=== PATIENT | male | born 1995 | race Hispanic/Latino ===

== ENCOUNTER 2017-11-20 14:16 | Observation (INO) | payer OTHER ==
[2017-11-20 15:13] VITALS: BMI 19.3
[2017-11-20] MEDS ORDERED: Sodium Chloride 0.9% 1,000 ML IV STA (15:45)
[2017-11-20 16:38] LABS: BASO # 0.02 K/mm3 (0.0-2.0); BASO % 0.2 % (0.0-3.0); EOS % 0.1 % (1.5-5.0); GRAN # 7.77 (1.4-6.5); GRAN % 71.9 % (50.0-68.0); LYMPH # 2.1 (1.2-3.4); LYMPH % 19.3 % (22.0-35.0); MEAN CELL VOLUME 82.6 fl (80.0-105.0); MEAN CORPUSCULAR HEMOGLOBIN 29.9 pg (25.0-35.0); MEAN CORPUSCULAR HGB CONC 36.1 g/dl (31.0-37.0); MEAN PLATELET VOLUME 8.9 fl (7.0-11.0); MONO # 0.9 (0.1-0.6); MONO % 8.5 % (1.0-6.0); RBC 5.36 10^6/uL (3.5-6.1); RED CELL DISTRIBUTION WIDTH 12.6 % (11.5-14.5); URINE BILIRUBIN NEGATIVE (NEGATIVE); URINE BLOOD NEGATIVE (NEGATIVE); URINE GLUCOSE (UA) NEGATIVE (NEGATIVE); URINE LEUKOCYTE ESTERASE NEGATIVE Leu/uL (NEGATIVE); URINE PROTEIN NEGATIVE mg/dL (<30 mg/dL); URINE UROBILINOGEN 0.2 E.U./dL (<1 E.U./dL); WHITE BLOOD COUNT 10.8 10^3/ul (4.5-11.0)
[2017-11-20 16:40] LABS: URINE APPEARANCE CLEAR (CLEAR); URINE COLOR YELLOW (YELLOW)
[2017-11-20 16:42] LABS: ALB/GLOB RATIO 1.5 (1.1-1.8); ALBUMIN 4.4 g/dL (3.0-4.8); ALT/SGPT 32 U/L (7-56); AST/SGOT 32 U/L (17-59); BLOOD UREA NITROGEN 17 mg/dL (7-21); CALCIUM 9.8 mg/dL (8.4-10.5); GFR AFRICAN-AMERICAN > 60; GFR NON-AFRICAN AMERICAN > 60; LIPASE 115 U/L (23-300)
--- NOTE | 2017-11-20 16:52 | ED PDOC ---
Arrival/HPI - General Chief Complaint: Abdominal Pain Time Seen by Provider: 11/20/17 15:33 Historian: Patient - History of Present Illness Narrative History of Present Illness (Text): 11/20/17 16:54 22-year-old male presents today with a four-day history of worsening abdominal pain. Patient states pain started 4 days ago he describes the pain as intermittent and an achy patient states the pain is located in the right lower abdomen. Patient states the pain is at a constant 7 but then at least 4 times throughout the day he developed severe pain that he rates at 10 out of 10 which she states is sharp and radiates across the entire abdomen. Patient denies dysuria. He denies testicular pain. He denies radiation of pain to the back. He denies nausea or vomiting. He denies diarrhea or constipation states his last bowel movement was yesterday. Patient denies dizziness or weakness. No medications have been taken for pain at home. Although the patient does state that he did take toms without improvement in his symptoms. Patient states he was able to eat today without any nausea status or vomiting. Patient states pain seems to worsen after eating. No other complaints. Past Medical History - Provider Review Nursing Documentation Reviewed: Yes - Travel History Have you recently traveled outside [place] w/in the past 3 mons?: No - Infectious Disease Hx of Infectious Diseases: None - Tetanus Immunization Tetanus Immunization: Unknown - Psychiatric Hx Anxiety: Yes Hx Depression: Yes Hx Substance Use: No Other/Comment: Hx Autism Family/Social History - Physician Review Nursing Documentation Reviewed: Yes Family/Social History: Unknown Family HX Smoking Status: Never Smoked Hx Alcohol Use: No Hx Substance Use: No Allergies/Home Meds Allergies/Adverse Reactions: Allergies Cephalosporins Allergy (Verified 11/20/17 15:35) ANGIOEDEMA Home Medications: Home Meds Medication Instructions Recorded Confirmed No Known Home Med 11/20/17 11/20/17 Review of Systems - Review of Systems Constitutional: absent: Fatigue, Fevers Respiratory: absent: SOB, Cough Cardiovascular: absent: Chest Pain, Palpitations Gastrointestinal: Abdominal Pain. absent: Nausea, Vomiting Genitourinary Male: absent: Dysuria, Frequency, Hematuria Musculoskeletal: absent: Arthralgias, Back Pain, Neck Pain Skin: absent: Rash, Pruritis Neurological: absent: Headache, Dizziness Psychiatric: absent: Anxiety, Depression, Suicidal Ideation Physical Exam Vital Signs Reviewed: Yes Vital Signs Temp Pulse Resp BP Pulse Ox 11/20/17 21:11 98.0 F 88 17 131/80 100 11/20/17 15:29 98.4 F 87 16 130/76 98 11/20/17 15:11 98.1 F 98 H 18 117/82 99 Temperature: Afebrile Blood Pressure: Normal Pulse: Regular Respiratory Rate: Normal Appearance: Positive for: Well-Appearing, Non-Toxic, Comfortable Pain Distress: None Mental Status: Positive for: Alert and Oriented X 3 - Systems Exam Head: Present: Atraumatic Mouth: Present: Moist Mucous Membranes Neck: Present: Normal Range of Motion Respiratory/Chest: Present: Clear to Auscultation, Good Air Exchange. No: Respiratory Distress, Accessory Muscle Use Cardiovascular: Present: Regular Rate and Rhythm, Normal S1, S2. No: Murmurs Abdomen: Present: Tenderness (RLQ, periumbical tenderness), Normal Bowel Sounds , Guarding. No: Distention, Peritoneal Signs, Rebound Back: Present: Normal Inspection. No: Midline Tenderness, Paraspinal Tenderness Upper Extremity: Present: Normal ROM Lower Extremity: Present: Normal ROM Neurological: Present: GCS=15, Speech Normal Skin: Present: Warm, Dry, Normal Color. No: Rashes Psychiatric: Present: Alert, Oriented x 3 Medical Decision Making ED Course and Treatment: 11/20/17 17:07 Patient is nontoxic well appearing with stable vital signs presenting with abdominal pain CBC wnl CMP wnl Lipase wnl Urinalysis wnl CAT scanFINDINGS: Lung bases: No mass. No consolidation. ABDOMEN: Liver: The liver measures 19.6 cm in the craniocaudad dimension, consistent with hepatomegaly. No hepatic mass is visualized. Gallbladder and bile ducts: No calcified stones. No ductal dilation. Pancreas: Normal contour, without acute peripancreatic stranding. Spleen: The spleen measures 15.0 cm in length, consistent with splenomegaly. No splenic mass visualized. Adrenals: No mass. Kidneys and ureters: There is a small hypodense cyst within each kidney. At the midpole of the right kidney, this measures 0.9 x 0.6 cm. Stomach and bowel: Mildly distended small bowel loops are identified with air fluid levels. This is concerning for obstruction. There is wall thickening of the stomach with hypodense wall edema versus adjacent fluid. Gastritis is suggested. Evaluation of bowel is limited by the absence of oral contrast. Moderate fecal material is identified within the colon. PELVIS: Appendix: The appendix is incompletely visualized, but appears to be nondistended. Bladder: No mass. Reproductive: Unremarkable as visualized. ABDOMEN and PELVIS: Intraperitoneal space: There is a small amount of free fluid within the pelvis. Bones/joints: There is slight convexity of the lumbar spine to the right. Vasculature: No abdominal aortic aneurysm. Lymph nodes: No enlarged lymph nodes. IMPRESSION: 1. Mildly distended small bowel loops are identified with air fluid levels. This is concerning for obstruction. 2. There is wall thickening of the stomach with hypodense wall edema versus adjacent fluid. Gastritis is suggested. Clinical correlation is recommended. 3. Hepatosplenomegaly. 4. Small renal cysts. 5. There is a small amount of free fluid within the pelvis. 6. Incidental/non-acute findings are described above. Patient reassessment: pt feeling better, but states pain is now returning. morphine added. Discussed all results with patient and his father in depth case discussed with dr. alexander -he would like dr. gutiérrez for surgery. case discussed with dr. gutiérrez in depth; will admit to his service observational status. case discussed with surgical coder; dr. vital Impression: SBO admit to dr. gutiérrez - Lab Interpretations Lab Results: 11/20/17 16:25 11/20/17 16:25 Lab Results 11/20/17 16:25: Urine Color Yellow, Urine Appearance Clear, Urine pH 6.0, Ur Specific [place] 1.025, Urine Protein Negative, Urine Glucose (UA) Negative, Urine Ketones Negative, Urine Blood Negative, Urine Nitrate Negative, Urine Bilirubin Negative, Urine Urobilinogen 0.2, Ur Leukocyte Esterase Negative 11/20/17 16:25: WBC 10.8, RBC 5.36, Hgb 16.0, Hct 44.3, MCV 82.6, MCH 29.9, MCHC 36.1, RDW 12.6, Plt Count 353, MPV 8.9, Gran % 71.9 H, Lymph % (Auto) 19.3 L, [place] % (Auto) 8.5 H, Eos % (Auto) 0.1 L, Baso % (Auto) 0.2, Gran # 7.77 H, Lymph # (Auto) 2.1, [place] # (Auto) 0.9 H, Eos # (Auto) 0.0, Baso # (Auto) 0.02 11/20/17 16:25: Sodium 144, Potassium 4.3, Chloride 103, Carbon Dioxide 29, Anion Gap 15, BUN 17, Creatinine 0.7 L, Est GFR ( Amer) > 60, Est GFR ( Non-Af Amer) > 60, Random Glucose 97, Calcium 9.8, Total Bilirubin 0.8, AST 32, ALT 32, Alkaline Phosphatase 74, Total Protein 7.3, Albumin 4.4, Globulin 2.9, Albumin/Globulin Ratio 1.5, Lipase 115 - RAD Interpretation Radiology Orders: 11/20/17 15:44 CHEST PORTABLE [RAD] Stat 11/20/17 15:45 ABD & PELVIS IV CONTRAST ONLY [CT] Stat - Medication Orders Current Medication Orders: Discontinued Medications Sodium Chloride (Sodium Chloride 0.9%) 1,000 mls @ 999 mls/hr IV .Q1H1M STA Stop: 11/20/17 16:45 Last Admin: 11/20/17 16:04 Dose: 999 mls/hr eMAR Start Stop Document 11/20/17 16:04 MS (Rec: 11/20/17 16:07 MS [id number]) Intravenous Solution Start Date 11/20/17 Start Time 16:06 End Date 11/20/17 End time 17:06 Total Infusion Time 60 Ketorolac Tromethamine (Toradol) 30 mg IVP STAT STA Stop: 11/20/17 15:46 Last Admin: 11/20/17 16:07 Dose: 30 mg MAR Pain Assessment Document 11/20/17 16:07 MS (Rec: 11/20/17 16:07 MS [id number]) Pain Reassessment Is this a pain reassessment? No Sleep Is patient sleeping during reassessment? No Presence of Pain Presence of Pain Yes Location Left, Right or Bilateral Left Upper or Lower Lower Pain Location Body Site Abdomen Description Description Intermittent Intensity of Pain at present 6 IVP Administration Document 11/20/17 16:07 MS (Rec: 11/20/17 16:07 MS [id number]) Charges for Administration # of IVP Administrations 1 Disposition/Present on Arrival - Present on Arrival Any Indicators Present on Arrival: No History of DVT/PE: No History of Uncontrolled Diabetes: No Urinary Catheter: No History of Decub. Ulcer: No History Surgical Site Infection Following: None - Disposition Have Diagnosis and Disposition been Completed?: Yes Diagnosis: Small bowel obstruction Disposition: HOSPITALIZED Disposition Time: 20:25 Patient Problems: Current Active Problems Problem Status Onset Small bowel obstruction Acute Condition: FAIR
[2017-11-20] MEDS ORDERED: Iohexol 350 MG/100 ML VIAL ONE (18:10)
--- NOTE | 2017-11-20 18:15 | RAD ---
HISTORY: Abdominal pain COMPARISON: No prior. FINDINGS: LUNGS: The lungs are well inflated and clear. PLEURA: No significant pleural effusion identified, no pneumothorax apparent. CARDIOVASCULAR: Normal. OSSEOUS STRUCTURES: No significant abnormalities. VISUALIZED UPPER ABDOMEN: Normal. OTHER FINDINGS: None. IMPRESSION: No active pulmonary disease.
--- NOTE | 2017-11-20 18:28 | CARD ---
APPROVED REPORT EKG Measurement Heart [id number] <Conclusion> Normal sinus rhythm Minimal voltage criteria for LVH, may be normal variant WNL
--- NOTE | 2017-11-20 20:07 | CT ---
EXAM: CT Abdomen and Pelvis With Intravenous Contrast EXAM DATE/TIME: 11/20/2017 3:45 PM CLINICAL HISTORY: The patient age is 22 years old and is male; Pain; Abdominal pain; Additional info: Abd pain Facility exam id and description: Ct abdpelciv abd pelvis iv contrast only TECHNIQUE: Axial computed tomography images of the abdomen and pelvis with intravenous contrast. All CT scans at this facility use one or more dose reduction techniques, viz.: automated exposure control; ma/kV adjustment per patient size (including targeted exams where dose is matched to indication; i.e. head); or iterative reconstruction technique. Coronal and sagittal reformatted images were created and reviewed. CONTRAST: 94 mL of omni 350 administered intravenously. COMPARISON: No relevant prior studies available. FINDINGS: Lung bases: No mass. No consolidation. ABDOMEN: Liver: The liver measures 19.6 cm in the craniocaudad dimension, consistent with hepatomegaly. No hepatic mass is visualized. Gallbladder and bile ducts: No calcified stones. No ductal dilation. Pancreas: Normal contour, without acute peripancreatic stranding. Spleen: The spleen measures 15.0 cm in length, consistent with splenomegaly. No splenic mass visualized. Adrenals: No mass. Kidneys and ureters: There is a small hypodense cyst within each kidney. At the midpole of the right kidney, this measures 0.9 x 0.6 cm. Stomach and bowel: Mildly distended small bowel loops are identified with air fluid levels. This is concerning for obstruction. There is wall thickening of the stomach with hypodense wall edema versus adjacent fluid. Gastritis is suggested. Evaluation of bowel is limited by the absence of oral contrast. Moderate fecal material is identified within the colon. PELVIS: Appendix: The appendix is incompletely visualized, but appears to be nondistended. Bladder: No mass. Reproductive: Unremarkable as visualized. ABDOMEN and PELVIS: Intraperitoneal space: There is a small amount of free fluid within the pelvis. Bones/joints: There is slight convexity of the lumbar spine to the right. Vasculature: No abdominal aortic aneurysm. Lymph nodes: No enlarged lymph nodes. IMPRESSION: 1. Mildly distended small bowel loops are identified with air fluid levels. This is concerning for obstruction. 2. There is wall thickening of the stomach with hypodense wall edema versus adjacent fluid. Gastritis is suggested. Clinical correlation is recommended. 3. Hepatosplenomegaly. 4. Small renal cysts. 5. There is a small amount of free fluid within the pelvis. 6. Incidental/non-acute findings are described above.
--- NOTE | 2017-11-20 23:50 | CP.PCM.HP ---
History of Present Illness - History of Present Illness History of Present Illness: H&P for Dr. Sinclair CC: abdominal pain Patient is a 22M with no significant PMH or PSH who presents to the ER for 4 days of diffuse crampy abdominal pain. Pt states that his pain intermittent and is worse after eating. Denies any nausea, vomiting, diarrhea, melena, fevers, chills, dysuria, hematuria, or any other symptoms. Patinet states that he is has 1-2 bowel movements normally but that the bowel movements have been smaller and harder recently. He had small amount of bright red blood per rectum on the toilet paper yesterday. Patient is passing gas even in the ER. Patient denies any recent narcotic use but states he has been dehydrated at work. currently takes only clonazepam occasionally PMH: autism, anxiety, depression PSH; none ALL: Cephalosporins Social: denies all substances Present on Admission - Present on Admission Any Indicators Present on Admission: No Review of Systems - Review of Systems All systems: reviewed and no additional remarkable complaints except (as per HPI ) Past Patient History - Infectious Disease Hx of Infectious Diseases: None - Tetanus Immunizations Tetanus Immunization: Unknown - Past Medical History & Family History Past Medical History?: No Past Family History: Reviewed and not pertinent - Past Social History Smoking Status: Never Smoked Alcohol: None Drugs: Denies Home Situation {Lives}: Alone - PSYCHIATRIC Hx Anxiety: Yes Hx Depression: Yes Hx Substance Use: No Other/Comment: Hx Autism - SURGICAL HISTORY Hx Surgeries: No Meds Allergies/Adverse Reactions: Allergies Allergy/AdvReac Type Severity Reaction Status Date / Time Cephalosporins Allergy ANGIOEDEMA Verified 11/20/17 15:35 Physical Exam - Constitutional Appears: Well, Non-toxic, No Acute Distress - Head Exam Head Exam: ATRAUMATIC, NORMOCEPHALIC - Eye Exam Eye Exam: Normal appearance. absent: Conjunctival injection, Scleral icterus - ENT Exam ENT Exam: Mucous Membranes Moist, Normal Oropharynx - Respiratory Exam Respiratory Exam: NORMAL BREATHING PATTERN. absent: Accessory Muscle Use, Respiratory Distress - Cardiovascular Exam Cardiovascular Exam: RRR - GI/Abdominal Exam GI & Abdominal Exam: Soft. absent: Distended, Hernia, Mass, Rebound, Tenderness - Rectal Exam Rectal Exam: NORMAL INSPECTION. absent: Bloody Stool, Hemorrhoids - Extremities Exam Extremities exam: Positive for: pedal pulses present. Negative for: calf tenderness, pedal edema - Back Exam Back exam: NORMAL INSPECTION - Neurological Exam Neurological exam: Alert, Oriented x3 - Psychiatric Exam Psychiatric exam: Normal Affect, Normal Mood - Skin Skin Exam: Dry, Intact, Normal Color, Warm Results - Vital Signs Recent Vital Signs: Last Vital Signs Temp 98.0 F 11/20/17 21:11 Pulse 88 11/20/17 21:11 Resp 17 11/20/17 21:11 BP 131/80 11/20/17 21:11 Pulse Ox 100 11/20/17 21:11 - Labs Result Diagrams: 11/20/17 16:25 11/20/17 16:25 Labs: Hemoccult blood test stool negative for blood Assessment & Plan - Assessment and Plan (Free Text) Assessment: 22M with small bowel ileus likely from constipation vs gastroenteritis Plan: NPO with ice chips IVF colace BID, docusate NH, water and soap robby enema repeat labs in AM encourage ambulation No surgery indicated at this time--likely not small bowel obstruction, will advance diet in AM if patient improves Monitor BM and UOP Discussed with dR. Yahir Almazan, PGY2
[2017-11-21] MEDS: Lactated Ringer's 1,000 ML IV SCH ×2 (00:20→08:40)
[2017-11-21 01:22] VITALS: RESP 20
[2017-11-21 07:05] LABS: BASO # 0.03 K/mm3 (0.0-2.0); BASO % 0.3 % (0.0-3.0); EOS % 0.2 % (1.5-5.0); GRAN # 6.49 (1.4-6.5); GRAN % 65.9 % (50.0-68.0); HEMOGLOBIN 13.4 g/dL (14.0-18.0); LYMPH # 2.4 (1.2-3.4); LYMPH % 24.5 % (22.0-35.0); MEAN CELL VOLUME 82.7 fl (80.0-105.0); MEAN CORPUSCULAR HEMOGLOBIN 28.6 pg (25.0-35.0); MEAN CORPUSCULAR HGB CONC 34.5 g/dl (31.0-37.0); MEAN PLATELET VOLUME 8.8 fl (7.0-11.0); MONO # 0.9 (0.1-0.6); MONO % 9.1 % (1.0-6.0); RBC 4.69 10^6/uL (3.5-6.1); RED CELL DISTRIBUTION WIDTH 12.8 % (11.5-14.5); WHITE BLOOD COUNT 9.9 10^3/ul (4.5-11.0)
[2017-11-21 07:33] LABS: BLOOD UREA NITROGEN 18 mg/dL (7-21); CALCIUM 8.9 mg/dL (8.4-10.5); GFR AFRICAN-AMERICAN > 60; GFR NON-AFRICAN AMERICAN > 60
[2017-11-21 07:51] VITALS: O2SAT 99
[2017-11-21] MEDS ORDERED: POLYETHYLENE GLYCOL 3350 17 GM/Dose PACKET PO ONE (08:07)
[2017-11-21] MEDS ORDERED: Enoxaparin 40 mg Syringe SC SCH (10:00)
[2017-11-21 14:34] VITALS: BP 130/90; PULSE 66; TEMP 98.2
--- NOTE | 2017-11-21 15:02 | CP.PCM.DIS ---
Provider - Provider Date of Admission: 11/20/17 22:14 Attending physician: Petey Sinclair MD Primary care physician: Dr. Sinclair Consults: None Time Spent in preparation of Discharge (in minutes): 35 Diagnosis - Discharge Diagnosis (1) Constipation Status: Acute Hospital Course - Lab Results Lab Results: Most Recent Lab Values WBC 9.9 10^3/ul (4.5-11.0) 11/21/17 06:15 RBC 4.69 10^6/uL (3.5-6.1) 11/21/17 06:15 Hgb 13.4 g/dL (14.0-18.0) L D 11/21/17 06:15 Hct 38.8 % (42.0-52.0) L 11/21/17 06:15 MCV 82.7 fl (80.0-105.0) 11/21/17 06:15 MCH 28.6 pg (25.0-35.0) 11/21/17 06:15 MCHC 34.5 g/dl (31.0-37.0) 11/21/17 06:15 RDW 12.8 % (11.5-14.5) 11/21/17 06:15 Plt Count 291 10^3/uL (120.0-450.0) 11/21/17 06:15 MPV 8.8 fl (7.0-11.0) 11/21/17 06:15 Gran % 65.9 % (50.0-68.0) 11/21/17 06:15 Lymph % (Auto) 24.5 % (22.0-35.0) 11/21/17 06:15 [place] % (Auto) 9.1 % (1.0-6.0) H 11/21/17 06:15 Eos % (Auto) 0.2 % (1.5-5.0) L 11/21/17 06:15 Baso % (Auto) 0.3 % (0.0-3.0) 11/21/17 06:15 Gran # 6.49 (1.4-6.5) 11/21/17 06:15 Lymph # (Auto) 2.4 (1.2-3.4) 11/21/17 06:15 [place] # (Auto) 0.9 (0.1-0.6) H 11/21/17 06:15 Eos # (Auto) 0.0 (0.0-0.7) 11/21/17 06:15 Baso # (Auto) 0.03 K/mm3 (0.0-2.0) 11/21/17 06:15 Sodium 140 mmol/L (132-148) 11/21/17 06:15 Potassium 4.1 mmol/L (3.6-5.0) 11/21/17 06:15 Chloride 104 mmol/L (98-107) 11/21/17 06:15 Carbon Dioxide 25 mmol/L (21-33) 11/21/17 06:15 Anion Gap 15 (10-20) 11/21/17 06:15 BUN 18 mg/dL (7-21) 11/21/17 06:15 Creatinine 0.6 mg/dl (0.8-1.5) L 11/21/17 06:15 Est GFR ( Amer) > 60 11/21/17 06:15 Est GFR (Non-Af Amer) > 60 11/21/17 06:15 Random Glucose 89 mg/dL (70-110) 11/21/17 06:15 Calcium 8.9 mg/dL (8.4-10.5) 11/21/17 06:15 Phosphorus 4.5 mg/dL (2.5-4.5) 11/21/17 06:15 Magnesium 1.9 mg/dL (1.7-2.2) 11/21/17 06:15 Total Bilirubin 0.8 mg/dL (0.2-1.3) 11/20/17 16:25 AST 32 U/L (17-59) 11/20/17 16:25 ALT 32 U/L (7-56) 11/20/17 16:25 Alkaline Phosphatase 74 U/L (38-126) 11/20/17 16:25 Total Protein 7.3 g/dL (5.8-8.3) 11/20/17 16:25 Albumin 4.4 g/dL (3.0-4.8) 11/20/17 16:25 Globulin 2.9 gm/dL 11/20/17 16:25 Albumin/Globulin Ratio 1.5 (1.1-1.8) 11/20/17 16:25 Lipase 115 U/L (23-300) 11/20/17 16:25 Urine Color Yellow (YELLOW) 11/20/17 16:25 Urine Appearance Clear (CLEAR) 11/20/17 16:25 Urine pH 6.0 (4.7-8.0) 11/20/17 16:25 Ur Specific [place] 1.025 (1.005-1.035) 11/20/17 16:25 Urine Protein Negative mg/dL (<30 mg/dL) 11/20/17 16:25 Urine Glucose (UA) Negative mg/dL (NEGATIVE) 11/20/17 16:25 Urine Ketones Negative mg/dL (NEGATIVE) 11/20/17 16:25 Urine Blood Negative (NEGATIVE) 11/20/17 16:25 Urine Nitrate Negative (NEGATIVE) 11/20/17 16:25 Urine Bilirubin Negative (NEGATIVE) 11/20/17 16:25 Urine Urobilinogen 0.2 E.U./dL (<1 E.U./dL) 11/20/17 16:25 Ur Leukocyte Esterase Negative [place]/uL (NEGATIVE) 11/20/17 16:25 - Hospital Course Hospital Course: 22M with no significant PMH or PSH who presents to the ER for 4 days of diffuse crampy abdominal pain. Pt states that his pain intermittent and is worse after eating. Denies any nausea, vomiting, diarrhea, melena, fevers, chills, dysuria, hematuria, or any other symptoms. Patinet states that he is has 1-2 bowel movements normally but that the bowel movements have been smaller and harder recently. He had small amount of bright red blood per rectum on the toilet paper yesterday. Patient is passing gas even in the ER. Patient denies any recent narcotic use but states he has been dehydrated at work. currently takes only clonazepam occasionally In ED - CT ab with following findings Mildly distended small bowel loops are identified with air fluid levels. This is concerning for obstruction. 2. There is wall thickening of the stomach with hypodense wall edema versus adjacent fluid. Gastritis is suggested. Clinical correlation is recommended. 3. Hepatosplenomegaly. 4. Small renal cysts. 5. There is a small amount of free fluid within the pelvis. Pt admitted to surgical service for observation, given bowel regimen with resultant bowel movements and flatus, improvement of pain. Patient tolerated slow diet advancement. Pt stable and ready for discharge home on hospital day one with instructions to follow up with PMD. Diagnoses Constipation Autism Anxiety depression - Date & Time of H&P Date of H&P: 11/20/17 Time of H&P: 23:49 Discharge Exam - Head Exam Head Exam: ATRAUMATIC, NORMAL INSPECTION, NORMOCEPHALIC - Eye Exam Eye Exam: EOMI, Normal appearance - Neck Exam Neck exam: Full Rom, Normal Inspection - Respiratory Exam Respiratory Exam: NORMAL BREATHING PATTERN, UNREMARKABLE - Cardiovascular Exam Cardiovascular Exam: REGULAR RHYTHM, +S1, +S2 - GI/Abdominal Exam GI & Abdominal Exam: Soft, Unremarkable. absent: Distended, Firm, Guarding, Hernia, Tenderness - Extremities Exam Extremities exam: normal inspection - Back Exam Back exam: NORMAL INSPECTION - Neurological Exam Neurological exam: Alert, CN II-XII Intact, Oriented x3 - Psychiatric Exam Psychiatric exam: Normal Affect, Normal Mood - Skin Skin Exam: Dry, Intact, Normal Color, Warm Discharge Plan - Follow Up Plan Condition: STABLE Disposition: HOME/ ROUTINE Instructions: High Fiber Diet, Constipation, Adult (DC) Additional Instructions: Please follow up with your primary care provider in 1-2 weeks after discharge. Be sure to drink enough water and eat fiber. Monitor your bowel habits. If you have a recurrence, please return to hospital. Referrals: Sera HENRY,Filiberto Dasilva MD [Staff Provider] - Petey Sinclair MD [Staff Provider] -
--- NOTE | 2017-11-21 21:41 | PN ---
DATE: 11/21/2017 SUBJECTIVE: Hayder Jeffries was seen on the floor. Admitted with a CAT scan showing partial small bowel obstruction. The CAT scan I reviewed myself and I do not agree with. I think it is probably an ileus and not terribly concerned. Multiple bowel movements were achieved with enemas and . The abdomen is soft and nontender. He is hungry and ready to go home. Patient is to be discharged, to be seen in my office in about 1 week. He should be back to work probably on Friday. I reviewed the CAT scan with the residents and agree with the history and physical. The patient to be discharged now. Petey Sinclair MD
== END 2017-11-21 17:58 | disposition home or self-care (01) ==
LOC: ED 14:16 → ERH 22:14 → 5RNO 11-21 00:26
PROVIDERS: ADMIT Surgery; ATTEND Surgery
DX: K56.7 Ileus, unspecified (principal); K62.5 Hemorrhage of anus and rectum; N28.1 Cyst of kidney, acquired; E86.0 Dehydration; F84.0 Autistic disorder; F41.9 Anxiety disorder, unspecified; F32.89 Other specified depressive episodes; R16.2 Hepatomegaly with splenomegaly, not elsewhere classified
CPT/HCPCS: 36415; 71045; 74177; 80048; 80053; 81003; 83690; 83735; 84100; 85025; 93005; 96361; 96374; 96376; 99284; G0378; J1885; J7030; J7120; Q9967